=== PATIENT | male | born 1965 | race African-American/Black ===

== ENCOUNTER 2017-07-24 07:57 | Emergency (ER) | payer MEDICARE, MEDICAID ==
[~2017-07-24] VITALS: Ht 152.4 cm; Wt 61.0 kg
[2017-07-24] MEDS ORDERED: RISP4 PO (08:07)
[2017-07-24] MEDS ORDERED: ALLO100T PO (08:07)
[2017-07-24] MEDS ORDERED: LEVO25TA7 PO (08:07)
[2017-07-24] MEDS ORDERED: BENZ0.5T3 PO (08:07)
[2017-07-24] MEDS ORDERED: DIVA500T51 PO (08:07)
[2017-07-24] MEDS ORDERED: ONDANSETRON HCL 4MG/2ML VIAL IV STA (09:27)
[2017-07-24] MEDS ORDERED: SODIUM CHLORIDE 0.9% 1,000 ML IV ONE (09:27)
[2017-07-24 09:59] VITALS: BP 111/56
[2017-07-24 10:02] LABS: CLARITY URINE CLEAR (CLEAR); COLOR URINE YELLOW (YELLOW); KETONES URINE NEGATIVE (NEGATIVE); LEUKOCYTE ESTERASE URINE NEGATIVE (NEGATIVE); NITRITE URINE NEGATIVE (NEGATIVE); OCCULT BLOOD URINE NEGATIVE (NEGATIVE); PROTEIN URINE NEGATIVE (NEGATIVE); SPECIFIC GRAVITY URINE 1.011 (1.005-1.030)
[2017-07-24 10:05] LABS: HEMATOCRIT. 31.5 % (42.0-52.0); HEMOGLOBIN. 10.8 g/dL (14.0-18.0); MEAN CORPUSCULAR HEMOGLOBIN 32.9 pg (28.0-32.0); MEAN CORPUSCULAR VOLUME 96.5 fL (80.0-94.0); MEAN PLATELET VOLUME 8.4 fl (7.4-10.4); PLATELET 134 x1000/uL (130-400); RED BLOOD CELL COUNT 3.27 mill/uL (4.7-6.1); RED CELL DISTRIBUTION WIDTH 17.7 % (11.6-14.6)
[2017-07-24 10:13] LABS: INR 1.2; PROTHROMBIN TIME 12.4 sec (9.4-11.6)
[2017-07-24 10:16] LABS: CHLORIDE 103 mEq/L (98-107)
[2017-07-24 10:31] LABS: PLATELET ESTIMATE NORMAL
== END 2017-07-24 11:30 | disposition home or self-care (01) ==
LOC: ER 07:57
DX: R53.1 Weakness (principal); R11.10 Vomiting, unspecified; D64.9 Anemia, unspecified; F79 Unspecified intellectual disabilities; E03.9 Hypothyroidism, unspecified; M10.9 Gout, unspecified; Z91.018 Allergy to other foods
CPT/HCPCS: 36415; 71045; 80053; 81003; 83605; 84484; 85025; 85610; 96361; 96374; 99285; J2405; J7030

== ENCOUNTER 2018-10-22 11:41 | Emergency (ER) | payer MEDICARE, MEDICAID ==
[~2018-10-22] VITALS: Ht 162.6 cm; Wt 60.0 kg
[~2018-10-22 11:41] MED LIST: ALLO100T PO; BENZ0.5T43 PO; DIVA500T51 PO; LEVO25TA7 PO; RISP4 PO
[2018-10-22] MEDS ORDERED: SODIUM CHLORIDE 0.9% 1,000 ML IV ONE (12:55)
[2018-10-22 13:17] LABS: BASOPHILS % 0.7 % (0.0-2.0); EOSINOPHILS % 0.2 % (0.0-5.0); HEMATOCRIT. 33.4 % (42.0-52.0); HEMOGLOBIN. 11.1 g/dL (14.0-18.0); LYMPHOCYTES % 8.2 % (20.0-50.0); MEAN CORPUSCULAR VOLUME 93.2 fL (80.0-94.0); MEAN PLATELET VOLUME 7.5 fl (7.4-10.4); MONOCYTES % 6.9 % (2.0-8.0); PLATELET 170 x1000/uL (130-400); RED BLOOD CELL COUNT 3.58 mill/uL (4.7-6.1); RED CELL DISTRIBUTION WIDTH 17.2 % (11.6-14.6)
[2018-10-22 13:24] LABS: CHLORIDE 106 mEq/L (98-107)
[2018-10-22 13:25] LABS: INR 1.1; PROTHROMBIN TIME 11.6 sec (9.6-11.0)
[2018-10-22 14:20] VITALS: BP 140/72
[2018-10-22 15:13] LABS: CLARITY URINE CLEAR (CLEAR); COLOR URINE YELLOW (YELLOW); KETONES URINE NEGATIVE (NEGATIVE); LEUKOCYTE ESTERASE URINE NEGATIVE (NEGATIVE); NITRITE URINE NEGATIVE (NEGATIVE); OCCULT BLOOD URINE NEGATIVE (NEGATIVE); PROTEIN URINE NEGATIVE (NEGATIVE); UROBILINOGEN URINE 0.2 E.U./dL (0.2-1.0)
== END 2018-10-22 16:30 | disposition home or self-care (01) ==
LOC: ER 11:41
DX: G31.9 Degenerative disease of nervous system, unspecified (principal); E03.9 Hypothyroidism, unspecified; R55 Syncope and collapse; R53.1 Weakness; Z79.899 Other long term (current) drug therapy
CPT/HCPCS: 36415; 70450; 80053; 81003; 82962; 83605; 84484; 85025; 85610; 93005; 96360; 96361; 99284; J7030